=== PATIENT | male | born 1945 | race Caucasian/White ===

== ENCOUNTER → 2022-10-23 09:21 | Outpatient (BNVA) | payer OTHER, SELFPAY | PROVIDERS: Visit Provider Nurse Practitioner Family | DX: L40.0 Psoriasis vulgaris (principal); Q82.5 Congenital non-neoplastic nevus; L02.426 Furuncle of left lower limb; L02.425 Furuncle of right lower limb; L82.1 Other seborrheic keratosis; S30.860A Insect bite (nonvenomous) of lower back and pelvis, initial encounter; W57.XXXA Bitten or stung by nonvenomous insect and other nonvenomous arthropods, initial encounter; L57.0 Actinic keratosis; L57.8 Other skin changes due to chronic exposure to nonionizing radiation; S60.021A Contusion of right index finger without damage to nail, initial encounter; X58.XXXA Exposure to other specified factors, initial encounter; L91.8 Other hypertrophic disorders of the skin; B07.8 Other viral warts | CPT/HCPCS: 17004; 99213 ==

== ENCOUNTER → 2022-11-24 15:22 | Outpatient (BNVA) | payer OTHER, SELFPAY | PROVIDERS: Visit Provider Nurse Practitioner Family | DX: L40.0 Psoriasis vulgaris (principal); Q82.5 Congenital non-neoplastic nevus; L82.1 Other seborrheic keratosis; L91.8 Other hypertrophic disorders of the skin; B07.8 Other viral warts | CPT/HCPCS: 11900; 99213 ==

== ENCOUNTER → 2022-12-23 15:15 | Outpatient (BNVA) | payer OTHER, SELFPAY | PROVIDERS: Visit Provider Nurse Practitioner Family | DX: B07.8 Other viral warts (principal); S80.262A Insect bite (nonvenomous), left knee, initial encounter; W57.XXXA Bitten or stung by nonvenomous insect and other nonvenomous arthropods, initial encounter; L57.0 Actinic keratosis; Z85.828 Personal history of other malignant neoplasm of skin | CPT/HCPCS: 17004; 99213 ==

== ENCOUNTER → 2023-03-16 09:45 | Outpatient (BNVA) | payer OTHER, SELFPAY | PROVIDERS: Visit Provider Nurse Practitioner Family | DX: B07.8 Other viral warts (principal); L82.1 Other seborrheic keratosis; S20.369A Insect bite (nonvenomous) of unspecified front wall of thorax, initial encounter; L53.8 Other specified erythematous conditions; L81.4 Other melanin hyperpigmentation; Z85.828 Personal history of other malignant neoplasm of skin; L57.0 Actinic keratosis | CPT/HCPCS: 17000; 99213 ==

== ENCOUNTER → 2023-09-14 10:27 | Outpatient (BNVA) | payer OTHER, SELFPAY | PROVIDERS: Visit Provider Nurse Practitioner Family | DX: B07.8 Other viral warts (principal); L57.0 Actinic keratosis; D48.5 Neoplasm of uncertain behavior of skin; Z85.828 Personal history of other malignant neoplasm of skin | CPT/HCPCS: 11102; 17000; 99213 ==

== ENCOUNTER → 2024-01-05 13:45 | Outpatient (BNVA) | payer OTHER, SELFPAY | PROVIDERS: Visit Provider Nurse Practitioner Family | DX: L30.8 Other specified dermatitis (principal); L82.1 Other seborrheic keratosis; Z85.828 Personal history of other malignant neoplasm of skin; L57.0 Actinic keratosis | CPT/HCPCS: 17000; 99214 ==

== ENCOUNTER → 2024-08-23 09:43 | Outpatient (BNVA) | payer OTHER, SELFPAY | PROVIDERS: Visit Provider Nurse Practitioner Family | DX: I87.2 Venous insufficiency (chronic) (peripheral) (principal); R60.0 Localized edema; L29.89 Other pruritus; L85.3 Xerosis cutis; R23.3 Spontaneous ecchymoses; Q82.5 Congenital non-neoplastic nevus; Z08 Encounter for follow-up examination after completed treatment for malignant neoplasm; Z85.828 Personal history of other malignant neoplasm of skin; D48.5 Neoplasm of uncertain behavior of skin; L57.0 Actinic keratosis | CPT/HCPCS: 11102; 17000; 99214 ==

== ENCOUNTER → 2024-10-03 09:09 | Outpatient (BNVA) | payer OTHER, SELFPAY | PROVIDERS: Visit Provider Dermatology | DX: L85.3 Xerosis cutis (principal); L81.4 Other melanin hyperpigmentation; D48.5 Neoplasm of uncertain behavior of skin | CPT/HCPCS: 11603; 13101; 99213 ==

== ENCOUNTER → 2025-02-21 10:52 | Outpatient (BNVA) | payer OTHER, SELFPAY | PROVIDERS: Visit Provider Nurse Practitioner Family | DX: L30.0 Nummular dermatitis (principal); L85.3 Xerosis cutis; Q82.5 Congenital non-neoplastic nevus; Z08 Encounter for follow-up examination after completed treatment for malignant neoplasm; Z85.828 Personal history of other malignant neoplasm of skin; L57.0 Actinic keratosis | CPT/HCPCS: 17000; 99213 ==